=== PATIENT | female | born 1985 | race African-American/Black ===

== ENCOUNTER 2025-01-18 08:21 | Outpatient (AMB) | payer OTHER, SELFPAY ==
--- NOTE | 2025-01-18 08:22 | MHC.PC.OV ---
Vital Signs 01/18/25 08:34 Height 5 ft 4.96 in Weight 161 lb 4 oz BMI 26.9 BP 102/80 Blood Pressure Location Rt brachial Position Sitting Respiration 16 Pulse 76 Pulse Source Pulse Oximeter Temp 97.8 F Temp Source Oral Pulse Oximetry (%) 100 Oxygen Delivery Method Room Air Intake Visit Reasons: Reduction Mammoplasty Concern Pain Intake Note: reduction of breast and it was done a year ago and now shes having a lot of pain in her breast. when she have her period it hurts more then usual and gets swollen in her belly. Financial Controller Required: No Accompanied by: Self / Same As Patient Allergies No Known Allergies Allergy (Verified 01/18/25 08:23) Medication List - Last Reconciled 01/18/25 by Manjinder Mccurdy MD No Known Home Meds Tobacco use date assessed: 01/18/25 Dental Screening Dental Screen Date: 01/18/25 Did you have a dental visit in the last 12 months?: No Did you have a dental problem in the last 6 months where you did not have access to dental care?: No Was dental information given to patient?: Patient has dentist HPI HPI Comments History of Present Illness Details History of Present Illness The patient is a 39-year-old female presenting with breast pain and multiple other concerns. Breast pain: - Pain associated with the menstrual cycle with a severity of 10/10 at peak. - Left breast pain on palpation; no masses or axillary lymphadenopathy. - Recent history of breast reduction surgery in [facility]. Menstrual pain: - Occurs during menstruation. Bloating after meals: - Experiences bloating after eating certain foods. History of anxiety: - Treated in the past with sertraline 25 mg. Left knee pain: - Described without further details. Health Maintenance - Annual Pap smear performed one year ago, with reported normal results. - STI screening panel completed a few months ago in [place]. Review of Systems - Breast: Reports bilateral breast pain, exacerbated with the menstrual cycle. - Gastrointestinal: Reports bloating after eating certain foods. - Musculoskeletal: Reports left knee pain. - Psychiatric: History of anxiety. 10-point ROS reviewed and negative except as noted in HPI Allergies Medications - Sertraline 25 mg for management of anxiety (previous treatment in [place]). Medication History - Sertraline 25 mg; treated anxiety in [place] with no reported side effects. Current Substance Use - Denies smoking and drinking. Substance Use History Past Medical History - History of anxiety. Past Surgical History - Breast reduction surgery performed in [place] about one year ago. Family History - History of lung cancer in the family, associated with a grandmother who smoked. Social History - Recently moved from [facility] to [place] then [place] - Previously lived in [place]; last saw PCP there. - Sexually active with one partner. - Amenable to chlamydia and gonorrhea screening. Physical Exam General: No apparent distress. Alert and oriented x 3. Head: Normocephalic, atraumatic Eyes: Pupils equal, round, and reactive to light. Extraocular movements intact Throat: Oropharynx clear. Mucus membranes moist Neck: Supple. No left anterior descending artery distention. No jugular vein distention. No bruit. Cardiovascular: Regular rate and rhythm. Normal S1 and S2. No murmurs, rubs, or gallops Lungs: Clear to auscultation bilaterally. Breath sounds equal bilaterally. No rales, ronchi, or wheezes. Abdomen: Non-tender. Non-distended. Bowel sounds auscultated. No hepatosplenomegaly. No mass/rebound/guarding Extremities: No clubbing, cyanosis, and edema. 2+ pulses Neuro: Central nerves II-XII grossly intact. Motor/sensory intact. Reflexes 2. Gait normal Skin: Warm, dry, and intact. No rash. Discussion Notes I discussed the management of breast pain, possibly linked to her menstrual cycle, and advised an ultrasound to evaluate further. I acknowledged her history of breast reduction and scheduled an appointment with a plastic surgeon for further evaluation. For menstrual pain, I suggested ibuprofen 800 mg and heating pads as effective options. Regarding her anxiety, I recommended resuming sertraline 25 mg and a follow-up to assess her response. I considered ibuprofen and exercises for left knee pain, with the possibility of an x-ray and physical therapy in the future. Addressing her bloating, keeping a food diary was advocated to identify trigger foods. She denied interest in HIV screening but agreed to gonorrhea and chlamydia testing. Plan 1. Breast Pain - Plan for a bilateral breast ultrasound. - Referral to the plastic surgeon scheduled for February 16. 2. Menstrual Pain - Recommended ibuprofen 800 mg and heating pads. 3. Bloating After Meals - Encouraged keeping a food diary for symptom tracking. 4. History Of Anxiety - Restart sertraline 25 mg and follow-up in one week. - Referred to behavioral health. 5. Left Knee Pain - Suggested ibuprofen and exercises, with consideration for imaging or therapy. Treatment Summary Anticapatory Guidance Patient Instructions - Take ibuprofen 800 mg for menstrual pain as needed. - Use heating pads for additional pain relief. - Restart sertraline 25 mg as directed. - Maintain a food diary to track symptoms related to bloating. - Schedule and attend ultrasound appointment and plastic surgeon consultation. - Follow up in one week for medication assessment. - Perform stretches and take ibuprofen for knee pain. - Continue safe sexual practices and comply with STI testing. [facility] Family History (Updated 01/18/25 @ 08:33 by Dulce Lantigua MA) Father No problems noted. Mother High cholesterol Hypertension Diabetes Social History (Updated 01/18/25 @ 08:33 by Dulce Lantigua MA) Housing: Apartment Alcohol intake: current Alcohol intake frequency: holidays/special occasions only Patient Tobacco Use Status: Never used Tobacco service: No Current occupational status: employed Cognitive needs: No Hearing needs: No Vision needs: No Questionnaire PHQ-9 Over the last 2 weeks, how often have you been bothered by any of the following problems? 1. Little interest or pleasure in doing things: several days 2. Feeling down, depressed, or hopeless: several days 3. Trouble falling or staying asleep, or sleeping too much: several days 4. Feeling tired or having little energy: several days 5. Poor appetite or overeating: several days 6. Feeling bad about yourself - or that you are a failure or have let yourself or your family down: several days 7. Trouble concentrating on things, such as reading the newspaper or watching television: more than half the days 8. Moving or speaking so slowly that other people could have noticed. Or the opposite - being so fidgety or restless that you have been moving around a lot more than usual: several days 9. Thoughts that you would be better off or of hurting yourself in some way: not at all Total score: 9 Depression Screening Interpretation: Positive Depression Screening Done: Yes Source: Developed by Drs. Zac Veras, Heydi Lee, Huang Case and colleagues, with an educational julia from [employer]. Thrive Questionnaire Date Thrive assessed: 01/18/25 I am a: Patient What is your living situation today?: I have a place to live, but I am worried about losing it in the future Within the past 12 months, did the food you bought not last and you didn't have the money to get more?: Never true Within the past 12 months, did you worry whether your food would run out before you got money to buy more?: Never true Do you have trouble paying for medicines?: No Do you have trouble getting transportation to medical appointments?: No Do you have trouble paying your heating and electricity bill?: No Do you have trouble taking care of your child, family member or friend?: No Are you currently unemployed and looking for a job?: No Are you interested in more education?: No Please select the resources that you would like help with: Housing/Long-Term Currently or been in a relationship where the following occur: No concerns reported THRIVE Score: 1 AUDIT C Alcohol Use Questionnaire (AUDIT-C) 1. How often do you have a drink containing alcohol?: Monthly or less 2. How many drinks containing alcohol do you have on a typical day when you are drinking?: 1 or 2 3. How often do you have six or more drinks on one occasion?: Never Total Score: 1 RANJEET-7 AMB Questionnaire RANJEET-7 Date RANJEET - 7 assessed: 01/18/25 Feeling nervous, anxious, or on edge: 1 = Several days Not being able to stop or control worryin = Several days Worrying too much about different things: 1 = Several days Trouble relaxin = Several days Being so restless that it is hard to sit still: 0 = Not at all Becoming easily annoyed or irritable: 1 = Several days Feeling afraid as if something awful might happen: 1 = Several days Total RANJEET-7 score (0-4 normal; 5-9 mild; 10-14 moderate; 15-21 severe): 6 Source: Developed by Drs. Zac Veras, Heydi Lee, Huang Case and colleagues, with an educational julia from [employer]. Physical exam (Primary Care) Vital Signs: Last Vital Signs Temp 97.8 F 01/18/25 08:34 Pulse 76 01/18/25 08:34 Resp 16 01/18/25 08:34 BP 102/80 01/18/25 08:34 Pulse Ox 100 01/18/25 08:34 Oxygen Delivery Method Room Air 01/18/25 08:34 BMI result Body Mass Index 26.9 Tobacco/Smoking Status: Tobacco use Status Tobacco use date assessed 01/18/25 01/18/25 08:25 Patient Tobacco Use Status Never used Tobacco 01/18/25 08:33 PHQ-9: PHQ-9 Score PHQ-9: Total score 9 01/18/25 08:51 Depression Screening Interpretation: Positive Thrive Assessment: Date of Thrive Assessment Date Thrive assessed 01/18/25 01/18/25 08:30 Currently or been in a relationship where the following occur: No concerns reported Coding Level of Care Code New Pt Level 3 (09072) Diagnoses Establishing care with new doctor, encounter for Z76. Routine lab draw Z01.89 Screening for depression Z13.31 Screening for diabetes mellitus Z13.1 Screening for lipoid disorders Z13.220 Hypertension screen Z13.6 Screening for HIV (human immunodeficiency virus) Z11.4 Counseling, unspecified Z71.9 Overweight (BMI 25.0-29.9) E66.3 Adjustment disorder with anxiety F43.22 Adjustment disorder type: with anxiety Pain of both breasts N64.4 History of reduction mammoplasty Z98.890 Pain in left knee M25.562 Mild dietary indigestion K30 Assessment & Plan Assessment & Plan (1) Establishing care with new doctor, encounter for: Code(s): Z76.89 - Persons encountering health services in other specified circumstances (2) Routine lab draw: Code(s): Z01.89 - Encounter for other specified special examinations (3) Screening for depression: Code(s): Z13.31 - Encounter for screening for depression (4) Screening for diabetes mellitus: Code(s): Z13.1 - Encounter for screening for diabetes mellitus (5) Screening for lipoid disorders: Code(s): Z13.220 - Encounter for screening for lipoid disorders (6) Hypertension screen: Code(s): Z13.6 - Encounter for screening for cardiovascular disorders (7) Screening for HIV (human immunodeficiency virus): Code(s): Z11.4 - Encounter for screening for human immunodeficiency virus [HIV] (8) Counseling, unspecified: Code(s): Z71.9 - Counseling, unspecified (9) Overweight (BMI 25.0-29.9): Code(s): E66.3 - Overweight (10) Adjustment disorder: Code(s): F43.20 - Adjustment disorder, unspecified Qualifiers: Adjustment disorder type: with anxiety Qualified Code(s): F43.22 - Adjustment disorder with anxiety (11) Pain of both breasts: Code(s): N64.4 - Mastodynia (12) History of reduction mammoplasty: Code(s): Z98.890 - Other specified postprocedural states (13) Pain in left knee: Code(s): M25.562 - Pain in left knee (14) Mild dietary indigestion: Code(s): K30 - Functional dyspepsia Plan Orders: Orders Comprehensive Met. Panel Today Z01.89 - Encounter for other specified special examinations, Z76.89 - Persons encountering health services in other specified circumstances Hemoglobin A1c Today Z01. - Encounter for other specified special examinations, Z76.89 - Persons encountering health services in other specified circumstances US breast LT complete Today N64.4 - Mastodynia, Z01.89 - Encounter for other specified special examinations, Z76.89 - Persons encountering health services in other specified circumstances US breast RT complete Today N64.4 - Mastodynia, Z01.89 - Encounter for other specified special examinations, Z76.89 - Persons encountering health services in other specified circumstances Complete Blood Count Auto Diff Today Z01. - Encounter for other specified special examinations, Z76.89 - Persons encountering health services in other specified circumstances Hepatitis B Surface Antibody Today Z01.89 - Encounter for other specified special examinations, Z76.89 - Persons encountering health services in other specified circumstances Hepatitis B Surface Antigen Today Z01.89 - Encounter for other specified special examinations, Z76.89 - Persons encountering health services in other specified circumstances Hepatitis C Antibody Today Z01.89 - Encounter for other specified special examinations, Z76.89 - Persons encountering health services in other specified circumstances Lipid Panel Today Z01.89 - Encounter for other specified special examinations, Z76.89 - Persons encountering health services in other specified circumstances UA CC w/rflx Micro + Cult Today Z01.89 - Encounter for other specified special examinations, Z76.89 - Persons encountering health services in other specified circumstances Chlamydia Species Ab Panel Today Z01.89 - Encounter for other specified special examinations, Z76.89 - Persons encountering health services in other specified circumstances CT NG by PCR Urine Today Z01.89 - Encounter for other specified special examinations, Z76.89 - Persons encountering health services in other specified circumstances Referrals Behavioral Health Referral F43.20 - Adjustment disorder, unspecified Medications: New ibuprofen 800 mg PO Q8H 30 tabs 0RF sertraline 25 mg PO DAILY 30 tabs 0RF
[2025-01-18 08:34] VITALS: BP 102/80; PULSE 76; RESP 16; TEMP 36.6; O2SAT 100; BMI 26.9
--- OUTSIDE RECORDS SUMMARY | 2025-01-18 09:33 | XMS_ITS | Clinical Summary ---
Author Organization [facility] Address [address] [place] [phone] Phone Care Team Providers Care Machine Gun Mechanic Name Role Phone Pcp, Unknown Primary Care Provider Unavailabl e Allergies No known active allergies Medications sertraline (ZOLOFT) 25 MG tablet Take 1 tablet by mouth every morning. 09/08/2024 Active b complex vitamins capsule Take 1 capsule by mouth daily. Active Encounters Date Type Department Care Team Description 12/09/2024 Telephone [facility] [address] [place] [address] Nikky Holly CMA 12/08/2024 9:49 PM EDT - 12/08/2024 10:35 PM EDT Emergency [facility] [address] [place] [address] Gavino Milligan, DO Discharge Disposition: Home or Self Care from Last 3 Months Social History Tobacco Use Types Packs/Day Years Used Date Smoking Tobacco: Never Smokeless Tobacco: Never Tobacco Cessation:Counseling Given: Not Answered Education Answer Date Recorded Are you interested in more education? Not on ramona e 07/08/2024 Are you concerned about learning? Not on file 07/08/2024 No 07/08/2024 No 07/08/2024 Digital Access Answer Date Recorded No 07/08/2024 No 07/08/2024 Reliable internet access at home? Not on file 07/08/2024 Device with a working camera? Not on file Intimate Partner Violence Answer Date R ecorded Are you denied basic needs s uch as food, clothing, or medical care? No 12/08/2024 In the past 12 months have y ou been in a relationship with a person who hurts, threatens, or tries to control you? No 12/08/2024 Are you denied basic needs s uch as food, clothing, or medical care? No 12/08/2024 In the past 12 months have y ou been in a relationship with a person who hurts, threatens, or tries to control you? No 12/08/2024 Comments Unknown Sex and Gender Information Value Date Recorded Sex Assigned at Choose not to disclose 9:57 PM EDT Legal Sex Female 3:25 PM EST Gender Identity Choose not to disclose 9:57 PM EDT Sexual Orientation Choose not to disclose 2024 9:57 PM EDT Last Filed Vital Signs Vital Sign Reading Time Taken Comments Blood Pressure 108/74 12/08/2024 10:27 PM EDT Pulse 65 12/08/2024 10:27 PM EDT Temperature 37.2 C (99 F) 12/08/2024 10:27 PM EDT Respiratory Rate 18 12/08/2024 10:27 PM EDT Oxygen Saturation 99% 12/08/2024 10:27 PM EDT Inhaled Oxygen Concentration - - Weight 72.6 kg (160 lb) 12/08/2024 7:32 PM EDT Height 165 cm (5' 4.96 ) 12/08/2024 7:32 PM EDT Body Mass Index 26.66 12/08/2024 7:32 PM EDT Plan of Treatment Upcoming Encounters Date Type Department Care Team (Late st Contact Info) Description 02/27/2025 2:00 PM EDT Office Visit [facility] Plastic Surgery [address] [place] [phone] Janelle Oliveira PA-C [address] [place] [id number] 10/09/2025 9:00 AM EDT Office Visit [facility] [place] [address] [address] [facility] [place] [address] [email or web address] Health Maintenance Due Date Last Done Comments Adult Td,Tdap Booster 1986 DEPRESSION SCREENING 1998 HEPATITIS C SCREENING 2004 HIV ONE-TIME SCREENING (18-6 5 YEARS) 2004 PAP SMEAR 2007 SCREENING FOR DIABETES 2021 INFLUENZA VACCINE (#1) 2024 COVID-19 VACCINE (2023-2 5 season) 2025 SMOKING STATUS SCREENING (On ce After 26 Yrs) Completed 09/14/2024 HEPATITIS A VACCINES Aged Out No long er eligible based on patient's age to complete this topic HIB VACCINES Aged Out No longer eligi ble based on patient's age to complete this topic MENINGOCOCCAL VACCINES (ACWY) Aged Out No longer eligible based on patient's age to complete this topic MENINGOCOCCAL VACCINES (B) Aged Out N o longer eligible based on patient's age to complete this topic PNEUMOCOCCAL VACCINES (0-49 years) Aged Out No longer eligible based on patient's age to complete this topic Medical Devices Not on file Insurance [facility] [place] [address] [place] [address] [place] [address] [place] [address] [employer] [facility] Care Teams Machine Gun Mechanic Relationship Specialty Start Date End Date Pcp, Unknown PCP - General 07/08/24 Additional Source Comments The information contained in this document represents components of the legal health record. It is not the complete legal health record.[facility]
== END 2025-01-18 09:21 | disposition home or self-care (01) ==
LOC: HO.HMCFMS 08:22
PROVIDERS: PCP Student in an Organized Health Care Education/Training Program; Visit Provider Student in an Organized Health Care Education/Training Program
DX: E66.3 Overweight (principal); F43.22 Adjustment disorder with anxiety; N64.4 Mastodynia; M25.562 Pain in left knee; K30 Functional dyspepsia

== ENCOUNTER 2025-01-18 08:21 | Outpatient (REF) | payer OTHER, SELFPAY ==
[2025-01-18 13:33] LABS: MANUAL DIFF FLAG NO
[2025-01-18 13:54] LABS: Hematocrit 33.8 % (37.0-47.0); Hemoglobin 11.1 g/dl (12.0-16.0); Imm Gran Abs Auto 0.00 X10*3/uL (0.00-0.03); Imm Gran Pct Auto 0.0 % (0.0-0.4); Lymphocytes Absolute Auto 1.6 X10*3/uL (1.2-4.9); Mean Corpuscular HGB Conc 32.8 g/dl (31.0-35.0); Mean Corpuscular Hemoglobin 28.9 pg (27.0-33.0); Mean Corpuscular Volume 88.0 fL (80.0-98.0); NRBC Abs Auto 0.000 X10*3/uL (0.0-0.012); NRBC Pct Auto 0.0 /100WBC (0.0-0.2); Platelet Count 263 X10*3/uL (160-400); Red Blood Count 3.84 X10*6/uL (4.20-5.50); White Blood Count 5.1 X10*3/uL (4.8-10.8)
[2025-01-18 14:16] LABS: Alanine Aminotransferase 13 U/L (0-31); Albumin Level 4.4 g/dL (3.5-5.0); Alkaline Phosphatase 61 U/L (39-117); Anion Gap 11 (12-20); Aspartate Amino Transferase 22 U/L (5-31); Blood Urea Nitrogen 11 mg/dL (9-16); Calcium 9.8 mg/dL (8.4-10.2); Carbon Dioxide 26 mmol/L (22-29); Chloride 107 mmol/L (96-108); Cholesterol 134 mg/dL (<200); Estimated Glomerular Filt Rate > 60; HDL Cholesterol 50 mg/dL (>40); Potassium 4.1 mmol/L (3.3-5.1); Sodium 140 mmol/L (135-145); Total Protein 8.0 g/dL (6.5-8.0); Triglycerides 37 mg/dL (<150)
[2025-01-18 14:24] LABS: Appearance Urine Clear; Glucose Urine UA Negative (Negative); PH 7.0 (5.0-9.0); Specific Gravity - Urine 1.015 (1.005-1.025); UMIC TRIGGER UACC YES
[2025-01-18 15:17] LABS: CT PCR Urine NOT DETECTED (Not Detect.); NG PCR Urine NOT DETECTED (Not Detect.)
[2025-01-19 08:07] LABS: HBS Num1 1.38 mIU/mL (0-7.99); HBsAGNum1 0.43 S/CO (0.00-0.99); Hepatitis B Surface Antigen Negative (Negative); ~HepC Num1 0.12 S/CO (0.00-0.79); ~Hepatitis B Surface Antibody NONREACTIVE (Nonreactive); ~Hepatitis C Antibody Nonreactive (Nonreactive)
[2025-01-23 19:09] LABS: Chlamydia Trachomatis IgA <1:16 titer (<1:16)
== END 2025-01-18 08:22 | disposition home or self-care (01) ==
LOC: HO.HKASLDS 08:21
PROVIDERS: Visit Provider Student in an Organized Health Care Education/Training Program
DX: Z76.89 Persons encountering health services in other specified circumstances (principal); Z13.31 Encounter for screening for depression; Z13.1 Encounter for screening for diabetes mellitus; Z13.220 Encounter for screening for lipoid disorders; Z13.6 Encounter for screening for cardiovascular disorders; Z11.4 Encounter for screening for human immunodeficiency virus [HIV]; Z71.9 Counseling, unspecified; Z01.89 Encounter for other specified special examinations; N64.4 Mastodynia; F43.20 Adjustment disorder, unspecified; E66.9 Obesity, unspecified; F43.22 Adjustment disorder with anxiety; M25.562 Pain in left knee; K30 Functional dyspepsia; Z98.890 Other specified postprocedural states
CPT/HCPCS: 80053; 80061; 81001; 81003; 83036; 85025; 86631; 86632; 86706; 86803; 87340; 87491; 87591; 99202

== ENCOUNTER 2025-01-27 14:29 | Outpatient (AMB) | payer OTHER, SELFPAY ==
--- OUTSIDE RECORDS SUMMARY | 2025-01-23 09:25 | XMS_ITS | Encounter Summary ---
Author Organization Located [facility] Address [address] [facility] [address] [place] [phone] Phone Care Team Providers Care Associate Professor Of Automation Name Role Phone Pcp, Unknown Primary Care Provider Unavailabl e Encounter Details Date Type Department Care Team (Latest Contact Info) Description 01/23/2025 9:25 AM EDT - 01/23/2025 11:59 PM EDT Hospital Encounter [facility] [address] [place] [address] Xinag Garcia MD, MPH [address] [place] [phone] [email or web address] Discharge Disposition: Home or Self Care Social History Tobacco Use Types Packs/Day Years Used Date Smoking Tobacco: Never Smokeless Tobacco: Never Education Answer Date Recorded Are you interested in more education? Not on ramona e 01/18/2025 Are you concerned about learning? Not on file 01/18/2025 No 01/18/2025 No 01/18/2025 Digital Access Answer Date Recorded No 01/18/2025 No 01/18/2025 Reliable internet access at home? Not on file 01/18/2025 Device with a working camera? Not on [...] Sex Assigned at Choose not to disclose 02/2025 10:24 AM EDT Legal Sex Female 6:25 PM EDT Gender Identity Choose not to disclose 10:24 AM EDT Sexual Orientation Choose not to disclose 2024 10:24 AM EDT documented as of this encounter Medications at Time of Discharge b complex vitamins capsule Take 1 capsule by mouth daily. sertraline (ZOLOFT) 25 MG tablet Take 1 tablet by mouth every morning. 09/08/2024 documented as of this encounter Plan of Treatment Upcoming Encounters Date Type Department Care Team (Late st Contact Info) Description 02/27/2025 2:00 PM EDT Office Visit [facility] Plastic Surgery [address] [place] [phone] Janelle Oliveira PA-C [address] [place] [address], [address] [address] [email or web address] documented as of this encounter Procedures Procedure Name Priority Date/Time Associated Diagnosis Comments HC TB CELL MEDIATED ANTIGN RESPNSE GAMMA INTERFERON Routine 01/23/2025 9:58 AM EDT Encounter for occupational health assessment documented in this encounter Results * Quantiferon-TB Gold (01/23/2025 9:58 AM EDT) QuantiFERON-TB Gold Negative Negative [facility] Comment: (NOTE) No interferon-gamma response to M. tuberculosis antigens was detected. Latent infection with M. tuberculosis is unlikely. A single negative result does not exclude infection with M. tuberculosis. In patients at high risk for M.tuberculosis infection, a second test should be considered in accordance with the 2017 ATS/IDSA/CDC Clinical Practice Guidelines for Diagnosis of Tuberculosis in Adults and Children [Padmini BEAN et. al. Clin. Infect. Dis. 2017;64(2):111-115]. The reference range for the 'TB1 Ag minus Nil Result' and 'TB2 Ag minus Nil Result' is an Interferon-gamma level <0.35 IU/mL. TB1 Ag minus Nil 0.01 IU/mL [facility] DR TB2 Ag minus Nil 0.00 IU/mL [facility] Mitogen minus Nil 9.12 IU/mL [facility] [place] Nil Result 0.03 IU/mL [facility] [place] Blood 01/23/2025 9:58 AM EDT 01/23/2025 10:52 AM EDT us Xiang Garcia MD, MPH LAB BLOOD ORDERABLES Fin al Result [facility] [place] [address] [place] [address] documented in this encounter Visit Diagnoses Diagnosis Encounter for occupational health assessment documented in this encounter Care Teams Associate Professor Of Automation Relationship Specialty Start Date End Date Pcp, Unknown PCP - General 07/08/24 documented as of this encounter Additional Source Comments The information contained in this document represents components of the legal health record. It is not the complete legal health record.[facility]
--- NOTE | 2025-01-27 14:34 | A.OFFPC_ITS ---
Vital Signs 01/27/25 14:40 Height 5 ft 4.96 in Weight 160 lb 6 oz BMI 26.7 BP 106/76 Blood Pressure Location Lt brachial Position Sitting Respiration 16 Pulse 87 Pulse Source Pulse Oximeter Temp 98.2 F Temp Source Oral Pulse Oximetry (%) 98 Oxygen Delivery Method Room Air Intake Visit Reasons: R/S 2 wks F/U from 01/25/25 Postbed Stitcher Required: No Accompanied by: Self / Same As Patient Allergies No Known Allergies Allergy (Verified 01/27/25 14:34) Tobacco use date assessed: 01/18/25 Dental Screening Dental Screen Date: 01/18/25 Did you have a dental visit in the last 12 months?: No Did you have a dental problem in the last 6 months where you did not have access to dental care?: No Was dental information given to patient?: Patient has dentist HPI HPI Comments History of Present Illness Details History of Present Illness The patient is a 39-year-old female presenting lab results and migraine headache management Anemia: - The patient has a hemoglobin level of 11.1 g/dL, indicating mild anemia. - She has not been taking iron supplemen ts and reports no heavy menstruation. - Iron supplementation with vitamin C wa s recommended to improve absorption. Migraine: - The patient reports suffering from daniela krishna and has previously used Spidfen while in [place]. - She has been advised to use rizatripta n for migraine management. Hepatitis B Vaccination: - The patient believed she received the Hepatitis B vaccine in the [place], but tests show she is nonreactive to the Hepatitis B surface antibody. - She was advised to obtain the vaccine from a local pharmacy. Review of Systems - Hematologic: Reports no heavy menstrua tion. - Neurological: Reports migraines. 10-point ROS reviewed and negative excep t as noted in HPI Past Medical History Health Maintenance - Hepatitis B vaccination recommended du e to nonreactive status. Physical Exam General: Well-appearing, in no acute distress. Vital signs: Within normal limits. HEENT: Normocephalic, atraumatic. PERRLA, EOMI. Conjunctiva clear, sclera anicteric. Oropharynx clear, mucous membranes moist. TMs intact bilaterally. Neck: Supple, no lymphadenopathy, no thyromegaly, no JVD or carotid bruits. Cardiovascular: RRR, normal S1/S2, no murmurs, rubs, or gallops. Peripheral pulses 2+ and symmetric. No edema. Respiratory: Lungs clear to auscultation bilaterally, no wheezes, rales, or rhonchi. Normal effort. Abdomen: Soft, non-tender, non-distended. Normoactive bowel sounds. No hepatosplenomegaly, no masses. MSK: Full range of motion, no joint swelling or deformity. Normal gait. Skin: Warm, dry, intact. No rashes, lesions, or pallor. Neuro: Alert and oriented x3. Cranial nerves II-XII intact. Strength 5/5 throughout. Sensation intact. Reflexes 2+ symmetric. Normal coordination and gait. Psych: Appropriate mood and affect. Normal judgment and insight. Plan 1. encounter for lab results 2. abnormality of red blood cells 3. anemia - Iron supplementation with vitamin C wa s prescribed to address the anemia. - Follow-up blood tests are planned in months to assess improvement. 4. blood in urine 5. Migraine - Rizatriptan was prescribed for migrain e management. 6. Hepatitis B Vaccination - The patient was advised to receive the Hepatitis B vaccine from a local pharmacy. Discussion Notes I discussed with the patient the presence of mild anemia and the importance of iron supplementation with vitamin C to enhance absorption. We also talked about her migraines and the use of rizatriptan as a treatment option. Additionally, I informed her about the need for a Hepatitis B vaccination due to her nonreactive status and advised her to obtain it from a local pharmacy. Patient Instructions - Take iron supplements daily with vitam in C to improve absorption. - Use rizatriptan as prescribed for migr ministerio relief. - Obtain Hepatitis B vaccine from a [facility] pharmacy. - Return for follow-up blood tests in . [facility] Medical History (Updated 01/27/25 @ 14:55 by Manjinder Mccurdy MD) Migraines Family History Father No problems noted. Mother High cholesterol Hypertension Diabetes Social History Housing: Apartment Alcohol intake: current Alcohol intake frequency: holidays/special occasions only Patient Tobacco Use Status: Never used Tobacco service: No Current occupational status: employed Cognitive needs: No Hearing needs: No Vision needs: No Questionnaire PHQ-9 Over the last 2 weeks, how often have you been bothered by any of the following problems? 1. Little interest or pleasure in doing things: several days 2. Feeling down, depressed, or hopeless: several days 3. Trouble falling or staying asleep, or sleeping too much: several days 4. Feeling tired or having little energy: several days 5. Poor appetite or overeating: several days 6. Feeling bad about yourself - or that you are a failure or have let yourself or your family down: several days 7. Trouble concentrating on things, such as reading the newspaper or watching television: more than half the days 8. Moving or speaking so slowly that other people could have noticed. Or the opposite - being so fidgety or restless that you have been moving around a lot more than usual: several days 9. Thoughts that you would be better off or of hurting yourself in some way: not at all Total score: 9 Depression Screening Interpretation: Positive Depression Screening Done: Yes Source: Developed by Drs. Zac Veras, Heydi Lee, Huang Case and colleagues, with an educational julia from [employer]. Thrive Questionnaire Date Thrive assessed: 01/18/25 I am a: Patient What is your living situation today?: I have a place to live, but I am worried about losing it in the future Within the past 12 months, did the food you bought not last and you didn't have the money to get more?: Never true Within the past 12 months, did you worry whether your food would run out before you got money to buy more?: Never true Do you have trouble paying for medicines?: No Do you have trouble getting transportation to medical appointments?: No Do you have trouble paying your heating and electricity bill?: No Do you have trouble taking care of your child, family member or friend?: No Are you currently unemployed and looking for a job?: No Are you interested in more education?: No Please select the resources that you would like help with: Housing/Detention Currently or been in a relationship where the following occur: No concerns reported THRIVE Score: 1 AUDIT C Alcohol Use Questionnaire (AUDIT-C) 1. How often do you have a drink containing alcohol?: Monthly or less 2. How many drinks containing alcohol do you have on a typical day when you are drinking?: 1 or 2 3. How often do you have six or more drinks on one occasion?: Never Total Score: 1 RANJEET-7 AMB Questionnaire RANJEET-7 Date RANJEET - 7 assessed: 01/18/25 Feeling nervous, anxious, or on edge: 1 = Several days Not being able to stop or control worryin = Several days Worrying too much about different things: 1 = Several days Trouble relaxin = Several days Being so restless that it is hard to sit still: 0 = Not at all Becoming easily annoyed or irritable: 1 = Several days Feeling afraid as if something awful might happen: 1 = Several days Total RANJEET-7 score (0-4 normal; 5-9 mild; 10-14 moderate; 15-21 severe): 6 Source: Developed by Drs. Zac Veras, Heydi Lee, Huang Case and colleagues, with an educational julia from [employer]. Physical exam (Primary Care) Vital Signs: Last Vital Signs Temp 98.2 F 01/27/25 14:40 Pulse 87 01/27/25 14:40 Resp 16 01/27/25 14:40 BP 106/76 01/27/25 14:40 Pulse Ox 98 01/27/25 14:40 Oxygen Delivery Method Room Air 01/27/25 14:40 BMI result Body Mass Index 26.7 Tobacco/Smoking Status: Tobacco use Status Tobacco use date assessed 01/18/25 01/27/25 14:36 Patient Tobacco Use Status Never used Tobacco 01/27/25 14:36 PHQ-9: PHQ-9 Score PHQ-9: Total score 9 01/27/25 14:36 Depression Screening Interpretation: Positive Thrive Assessment: Date of Thrive Assessment Date Thrive assessed 01/18/25 01/27/25 14:36 Currently or been in a relationship where the following occur: No concerns reported Coding Level of Care Code Est Pt Level 3 (08825) Diagnoses Migraines G43.909 Anemia, unspecified type D64.9 Anemia type: unspecified type Hematuria, unspecified type R31.9 Hematuria type: unspecified type Hepatitis B vaccination not up to date Z28.39 Abnormality of red blood cells R71.8 Encounter to discuss test results Z71.2 Overweight with body mass index (BMI) 25.0-29.9 E66.3 Assessment & Plan Assessment & Plan (1) Migraines: Code(s): G43.909 - Migraine, unspecified, not intractable, without status migrainosus Category: Medical (2) Anemia: Code(s): D64.9 - Anemia, unspecified Qualifiers: Anemia type: unspecified type Qualified Code(s): D64.9 - Anemia, unspecified (3) Blood in urine: Code(s): R31.9 - Hematuria, unspecified Qualifiers: Hematuria type: unspecified type Qualified Code(s): R31.9 - Hematuria, unspecified Plan: Patient was on a menstrual cycle and she gave the specimen (4) Hepatitis B vaccination not up to date: Code(s): Z28.39 - Other underimmunization status (5) Abnormality of red blood cells: Code(s): R71.8 - Other abnormality of red blood cells (6) Encounter to discuss test results: Code(s): Z71.2 - Person consulting for explanation of examination or test findings (7) Overweight with body mass index (BMI) 25.0-29.9: Code(s): E66.3 - Overweight Plan Medications: New ascorbic acid (vitamin C) 500 mg PO DAILY 30 tabs 2RF ferrous sulfate (iron) 325 mg PO DAILY 30 tabs 2RF rizatriptan take 1 tab at onset of headache; if no relief may repeat 1 tab after at least 2 hrs; max = 3 tabs/24 hr PO 30 tabs 0RF G43.909 - Migraine, unspec ified, not intractable, without status migrainosus acetaminophen 500 mg PO Q6H PRN 30 tabs 0RF fever or pain
--- OUTSIDE RECORDS SUMMARY | 2025-01-27 14:35 | XMS_ITS | Clinical Summary ---
Author Organization [facility] Address [address] [facility] [address] [place] [id number] Phone Care Team Providers Care Enamel Sprayer Name Role Phone Pcp, Unknown Primary Care Provider Unavailabl e Allergies No known active allergies Medications sertraline (ZOLOFT) 25 MG tablet Take 1 tablet by mouth every morning. 09/08/2024 Active b complex vitamins capsule Take 1 capsule by mouth daily. Active Encounters Date Type Department Care Team Description 01/23/2025 9:25 AM EDT - 01/23/2025 11:59 PM EDT Hospital Encounter [facility] [address] [place] [address] Xiang Garcia MD, MPH Discharge Disposition: Home or Self Care 01/20/2025 Orders Only [facility] [address] [place] [address] Shruthi Vizcaino CNP Encounter for occupational health assessment (Primary Dx) 12/09/2024 Telephone [facility] Plastic Surgery [address] [place] [address] Nikky Holly CMA 12/08/2024 9:49 PM EDT - 12/08/2024 10:35 PM EDT Emergency [facility] [address] [place] [address] Gavino Milligan, Discharge Disposition: Home or Self Care from [...] not to disclose 2024 10:24 AM EDT Last Filed Vital Signs Vital Sign [...] Description 02/27/2025 2:00 PM EDT Office Visit [facility] [address] [place] [id number] Janelle Oliveira PA-C [address] [facility], [address] [place] [phone] [email or web address] Health Maintenance Due Date Last Done Comments [...] this topic Medical Devices Not on file Procedures Procedure Name Priority Date/Time Associated Diagnosis Comments HC TB CELL MEDIATED ANTIGN RESPNSE GAMMA INTERFERON Routine 01/23/2025 9:58 AM EDT Encounter for occupational health assessment from Last 3 Months Results * Quantiferon-TB Gold (01/23/2025 9:58 AM EDT) Pathologist [facility] QuantiFERON-TB Gold Negative Negative [facility] Comment: (NOTE) No [...] SUPERIOR DR Mitogen minus Nil 9.12 IU/mL [facility] Nil Result 0.03 IU/mL [facility] Blood 01/23/2025 9:58 AM EDT 01/23/2025 10:52 AM EDT us Xiang Garcia MD, MPH LAB BLOOD ORDERABLES Fin al Result Performing Organization Address City/State/[facility] Co de Phone Number [facility] [address] [place] [address] from Last [address] [place] [address] [place] [address] [facility] [place] [address] [address] ACO [facility] ACO [facility]CO [facility] Care Teams Enamel Sprayer Relationship Specialty Start Date End Date Pcp, Unknown PCP - General 07/08/24 Additional Source Comments The information contained in this document represents components of the legal health record. It is not the complete legal health record.[facility]
[2025-01-27 14:40] VITALS: BP 106/76; PULSE 87; RESP 16; TEMP 36.8; O2SAT 98; BMI 26.7
== END 2025-01-27 15:07 | disposition home or self-care (01) ==
LOC: HO.HMCFMS 14:30
PROVIDERS: PCP Student in an Organized Health Care Education/Training Program; Visit Provider Student in an Organized Health Care Education/Training Program
DX: G43.909 Migraine, unspecified, not intractable, without status migrainosus (principal); D64.9 Anemia, unspecified; R31.9 Hematuria, unspecified; Z28.39 Other underimmunization status; R71.8 Other abnormality of red blood cells; Z71.2 Person consulting for explanation of examination or test findings; E66.3 Overweight

== ENCOUNTER → 2025-01-27 14:29 | Outpatient (BNVA) | payer OTHER, SELFPAY | PROVIDERS: PCP Student in an Organized Health Care Education/Training Program; Visit Provider Student in an Organized Health Care Education/Training Program | DX: Z71.2 Person consulting for explanation of examination or test findings (principal); G43.909 Migraine, unspecified, not intractable, without status migrainosus; D64.9 Anemia, unspecified; R31.9 Hematuria, unspecified; E66.3 Overweight; Z68.26 Body mass index [BMI] 26.0-26.9, adult; Z28.39 Other underimmunization status; Z13.31 Encounter for screening for depression | CPT/HCPCS: 99212 ==

== ENCOUNTER 2025-03-16 10:59 | Outpatient (REF) | payer MEDICAID, OTHER, SELFPAY ==
--- NOTE | ~2025-03-16 | MM_ITS ---
EXAMINATION: MM DIAGNOSTIC DIGITAL BREAST TOMOSYNTHESIS, BILATERAL Limited left breast ultrasound. CLINICAL INFORMATION: Right diffuse breast pain no focal pain. Left focal pain upper inner quadrant. History of bilateral reduction mammoplasty. COMPARISON: Mammography: Comparison is made with relevant prior exams. TECHNIQUE: Digital breast mammography with tomosynthesis is performed in both the craniocaudal and mediolateral oblique views along with computer-aided detection (CAD). FINDINGS: There are scattered areas of fibroglandular density. Bilateral reduction mammoplasty. There are no significant masses, abnormal calcifications, or other abnormalities. Targeted color Doppler ultrasound scanning in the left upper inner quadrant area of patient's pain demonstrates normal fibroglandular breast tissue. There is no sonographic abnormal finding to account for the patient's left breast pain. Results are provided to the patient at time of visit by the technologist. MM/MM tomosynthesis diagnostic BI IMPRESSION: Left: No mammographic or sonographic abnormal finding to account for the patient's left upper inner quadrant breast pain. Recommend clinical evaluation and follow-up. Right: Negative mammogram. Patient has diffuse nonfocal right breast pain. Recommend clinical evaluation follow-up. ASSESSMENT: BI-RADS Category 2: Benign RECOMMENDATION: 1 year F/U This patient's information was entered into a reminder system with a target due date for their next mammogram. Electronically signed by: Bruna Willis DO 03/16/2025 12:02 PM YANIRA
--- OUTSIDE RECORDS SUMMARY | 2025-03-16 13:23 | XMS_ITS | Clinical Summary ---
Author Organization [facility] Address [address] [facility] [address] [place] [id number] Phone Care Team Providers Care Liquid Fertilizer Servicer Name Role Phone Pcp, Unknown Primary Care Provider Unavailabl e Allergies No known active allergies Medications sertraline (ZOLOFT) 25 MG tablet Take 1 tablet by mouth every morning. 09/08/2024 Active b complex vitamins capsule Take 1 capsule by mouth daily. Active Encounters Date Type Department Care Team Description 02/27/2025 2:00 PM EDT Office Visit [facility] Pl[facility] Surgery [address] [place] [phone] Janelle Oliveira, Janice Hogue Keloid scar (Primary Dx); Breast pain; S/P bilateral breast reduction 01/23/2025 9:25 AM EDT - 01/23/2025 11:59 PM EDT Hospital Encounter [facility] [address] [address] Xiang Garcia MD, MPH Discharge Disposition: Home or Self Care 01/20/2025 Orders Only [facility] [address] [place] [id number] Shruthi Vizcaino RN Encounter for occupational health assessment (Primary Dx) from Last 3 Months Social History Tobacco [...] Information Value Date Recorded Sex Assigned at Female 02/27/2025 2:08 PM EDT Legal Sex Female 6:25 PM EDT Gender Identity Female 02/27/2025 2:08 PM EDT Sexual Orientation Choose not to disclose 2024 10:24 AM EDT Last Filed Vital Signs Vital Sign Reading Time Taken Comments Blood Pressure 108/74 12/08/2024 10:27 PM EDT Pulse 65 12/08/2024 10:27 PM EDT Temperature 37.2 C (99 F) 12/08/2024 10:27 PM EDT Respiratory Rate 18 12/08/2024 10:2 7 PM EDT Oxygen Saturation 99% 12/08/2024 10: 27 PM EDT Inhaled Oxygen Concentration - - Weight 72.5 kg (159 lb 12.8 oz) 02/27/2025 2:05 PM EDT Height 165 cm (5' 4.96 ) 02/27/2025 2:05 PM EDT Body Mass Index 26.62 02/27/2025 2:05 PM EDT Plan of Treatment Upcoming Encounters Date Type Department Care Team (Late st Contact Info) Description 04/11/2025 1:30 PM EST Office Visit [facility] Plastic Surgery [address] [place] [address] Janelle Oliveira PA-C [address] [place] [address], [address] [place] [id number] Health Maintenance Due Date Last Done Comments Adult Td,Tdap Booster 1986 DEPRESSION SCREENING 1998 HEPATITIS C SCREENING 2004 HIV ONE-TIME SCREENING (18-6 5 YEARS) 2004 PAP SMEAR 2007 SCREENING FOR DIABETES 2021 INFLUENZA VACCINE (#1) 2024 COVID-19 VACCINE (2024-2 6 season) 2025 SMOKING STATUS SCREENING (On ce After 26 Yrs) Completed 02/27/2025 HEPATITIS A VACCINES Aged Out No long [...] Procedure Name Priority Date/Time Associated Diagnosis Comments QUANTIFERON-TB GOLD Routine 01/23/2025 9:58 AM EDT Encounter for occupational health assessment from Last 3 Months Results * Quantiferon-TB Gold (01/23/2025 9:58 AM EDT) QuantiFERON-TB Gold Negative Negative [facility] Comment: (NOTE) No [...] Diagnosis of Tuberculosis in Adults and Children [Lewinsmyeshan DM et. al. Clin. Infect. Dis. 2017;64(2):111-115]. The reference range for the 'TB1 Ag minus Nil Result' and 'TB2 Ag minus Nil Result' is an Interferon-gamma level <0.35 IU/mL. TB1 Ag minus Nil 0.01 IU/mL [facility] TB2 Ag minus Nil 0.00 IU/mL [facility] DR Mitogen minus Nil 9.12 IU/mL [facility] Nil Result 0.03 IU/mL [facility] Blood 01/23/2025 9:58 AM EDT 01/23/2025 10:52 AM EDT us Xiang Garcia MD, MPH LAB BLOOD ORDERABLES Fin al Result [facility] [address] [place] [address] from Last 3 Months Insurance [facility] [place] [facility] NET [facility] SAF[facility] NET [facility]ULL [place] [facility] NET FULL [facility] Care Teams Liquid Fertilizer Servicer Relationship Specialty Start Date End Date Pcp, Unknown PCP - General 07/08/24 Additional Source Comments The information contained in this document represents components of the legal health record. It is not the complete legal health record.[facility]
== END 2025-03-16 11:00 | disposition home or self-care (01) ==
LOC: HO.MAMMO 10:59
PROVIDERS: PCP Student in an Organized Health Care Education/Training Program; Visit Provider Student in an Organized Health Care Education/Training Program
DX: N64.4 Mastodynia (principal); Z76.89 Persons encountering health services in other specified circumstances
CPT/HCPCS: 76642; 77062; 77066

== ENCOUNTER → 2025-03-16 11:30 | Outpatient (BNV) | payer SELFPAY | PROVIDERS: PCP Student in an Organized Health Care Education/Training Program; Visit Provider Internal Medicine | DX: N64.4 Mastodynia (principal) | CPT/HCPCS: 76642; 77062; 77066 ==